=== PATIENT | female | born 1935 | race Caucasian/White ===

== ENCOUNTER 2024-04-30 18:41 | Inpatient (IN) | payer MEDICARE ==
[~2024-04-30] VITALS: Ht 160 cm; Wt 52.6 kg
[2024-04-30] MEDS: REMEDY ESSENTIAL ZINC PASTE 113 GM TOP SCH (20:33)
[2024-04-30 20:35] VITALS: BP 124/52; TEMP 97.4; O2SAT 96
[2024-04-30] MEDS ORDERED: ACET650T10 PO (20:52)
[2024-04-30] MEDS ORDERED: [UNRECOGNIZED DRUG - CODE] IV (20:52)
[2024-04-30] MEDS ORDERED: TIZA-180 PO (20:52)
[2024-04-30] MEDS ORDERED: ONDA-104 PO (20:52)
[2024-04-30] MEDS ORDERED: MORP1VIA3 IJ (20:52)
[2024-04-30] MEDS ORDERED: PREG25CA19 PO (20:52)
[2024-04-30] MEDS ORDERED: MAGN400O6 PO (20:52)
[2024-04-30] MEDS ORDERED: NITR-84 PO (20:52)
[2024-04-30] MEDS ORDERED: ENOX40DI9 SQ (20:52)
[2024-04-30] MEDS ORDERED: MAG355OR18 PO (20:52)
[2024-04-30] MEDS ORDERED: PANT40TA49 PO (20:52)
[2024-04-30] MEDS ORDERED: REMEDY ESSENTIAL ZINC PASTE 113 GM TOP SCH (21:00)
[2024-04-30] MEDS ORDERED: ONDANSETRON 4 MG/2 ML VIAL IV PRN (21:30)
[2024-04-30] MEDS ORDERED: ACETAMINOPHEN 325 MG TABLET PO PRN (21:30)
[2024-04-30] MEDS: PREGABALIN 25 MG CAPSULE PO SCH (22:41)
[2024-04-30] MEDS: TIZANIDINE HCL 4 MG TABLET PO SCH (22:41)
[2024-04-30] MEDS: ACETAMINOPHEN 325 MG TABLET PO SCH (22:42)
[2024-04-30] MEDS: NITROFURANTOIN/NITROFURAN MAC 100 MG CAPSULE PO SCH (22:42)
[2024-05-01] MEDS: ONDANSETRON HCL 4 MG TABLET PO SCH
[2024-05-01] MEDS: TRAMADOL HCL 50 MG TABLET PO PRN (00:01)
[2024-05-01 04:40] VITALS: BP 158/73; TEMP 97.6; O2SAT 95
[2024-05-01] MEDS ORDERED: REMEDY ESSENTIAL ZINC PASTE 113 GM TOP PRN (06:38)
[2024-05-01] MEDS ORDERED: ONDANSETRON HCL 4 MG TABLET PO PRN (08:00)
[2024-05-01 08:21] LABS: CALCIUM 8.3 mg/dL (8.5-10.1); CARBON DIOXIDE 26 mmol/L (21-32); CHLORIDE 108 mmol/L (98-107); CREATININE 0.6 mg/dL (0.6-1.3); GLUCOSE 119 mg/dL (74-106); POTASSIUM 4.7 mmol/L (3.5-5.1); SODIUM SERUM 141 mmol/L (136-145); UREA NITROGEN, BLOOD 11 mg/dL (7-18)
[2024-05-01] MEDS: PANTOPRAZOLE SODIUM 40 MG TABLET.DR PO SCH (09:04)
[2024-05-01] MEDS: ENOXAPARIN SODIUM 40 MG/0.4 ML DISP.SYRIN SQ SCH (09:46)
[2024-05-01] MEDS: ACETAMINOPHEN 325 MG TABLET PO PRN (10:33)
[2024-05-01] MEDS ORDERED: SULF1TAB48 PO (11:18)
[2024-05-01 13:00] VITALS: O2SAT 99
[2024-05-01] MEDS ORDERED: ZINC113P3 TP (14:54)
[2024-05-01 15:58] VITALS: BP 148/71; TEMP 97.8; O2SAT 100
[2024-05-01 20:31] VITALS: BP 104/48; TEMP 98.3; O2SAT 95
[2024-05-01] MEDS: SULFAMETH/TRIMETH 800/160 MG TABLET PO SCH (20:44)
[2024-05-01] MEDS: LIDOCAINE 5% PATCH TD SCH (20:49)
[2024-05-02 03:42] VITALS: O2SAT 99
[2024-05-02 05:10] VITALS: BP 129/61; TEMP 98.2; O2SAT 95
[2024-05-02] MEDS ORDERED: METHYL SALICYLATE/MENTHOL CREAM 28 GM TUBE TOP SCH (09:00)
[2024-05-02] MEDS: LIDOCAINE 5% PATCH TD SCH (09:12)
[2024-05-02] MEDS: METHYL SALICYLATE/MENTHOL CREAM 28 GM TUBE TOP SCH (09:13)
[2024-05-02 16:09] VITALS: BP 145/62; TEMP 98.6; O2SAT 95
[2024-05-02 21:32] VITALS: BP 106/58; TEMP 98; O2SAT 96
[2024-05-02 22:11] VITALS: O2SAT 98
[2024-05-03 06:51] VITALS: BP 134/52; TEMP 97.9; O2SAT 95
[2024-05-03] MEDS: ENSURE WITH FIBER 237 ML LIQUID (CHOCOLATE) PO SCH (12:06)
[2024-05-03 15:52] VITALS: BP 126/59; TEMP 97.5; O2SAT 96
[2024-05-03] MEDS: SORBITOL 70% SOLUTION 30 ML UDC PO ONE (16:30)
[2024-05-03] MEDS: LACTULOSE 20 G/30 ML LIQUID UDC PO ONE (16:30)
[2024-05-03] MEDS: DOCUSATE SODIUM 100 MG CAPSULE PO SCH (16:33)
[2024-05-03 16:35] VITALS: O2SAT 95
[2024-05-04 03:47] VITALS: O2SAT 97
[2024-05-04 06:00] VITALS: BP 139/63; TEMP 99; O2SAT 99
[2024-05-04] MEDS: HYDROCODONE/APAP 5-325MG TABLET PO PRN (11:24)
[2024-05-04 15:55] VITALS: BP 106/54; TEMP 97.9; O2SAT 99
[2024-05-04 16:26] VITALS: O2SAT 98
[2024-05-04 20:00] VITALS: BP 121/55; TEMP 98.2; O2SAT 93
[2024-05-05 00:09] VITALS: O2SAT 98
[2024-05-05 07:35] VITALS: BP 131/64; TEMP 97.6; O2SAT 96
[2024-05-05 15:20] VITALS: BP 105/50; TEMP 98.4; O2SAT 94
[2024-05-05 20:28] VITALS: BP 111/49; TEMP 98.1; O2SAT 96
[2024-05-05 20:52] VITALS: O2SAT 96
[2024-05-06 06:06] VITALS: BP 117/51; TEMP 98.1; O2SAT 96
[2024-05-06 15:57] VITALS: BP 111/52; TEMP 97.4; O2SAT 95
[2024-05-06 16:22] VITALS: O2SAT 96
[2024-05-06 20:14] VITALS: O2SAT 96
[2024-05-06 20:24] VITALS: BP 98/51; TEMP 98.6; O2SAT 95
[2024-05-07 06:49] VITALS: BP 108/50; TEMP 97.7; O2SAT 93
[2024-05-07 10:10] VITALS: O2SAT 97
[2024-05-07] MEDS: OXYCODONE/APAP 5-325 MG TABLET PO PRN (13:06)
[2024-05-07 15:13] VITALS: BP 118/56; TEMP 97.3; O2SAT 99
[2024-05-07 20:43] VITALS: BP 123/52; TEMP 97.9; O2SAT 96
[2024-05-07 20:58] VITALS: O2SAT 95
[2024-05-07 22:55] VITALS: O2SAT 96
[2024-05-08 06:05] VITALS: BP 129/62; TEMP 97.8; O2SAT 96
[2024-05-08 09:00] VITALS: BP 121/64; TEMP 97.7; O2SAT 96
[2024-05-08] MEDS: KETOROLAC TROMETHAMINE 10 MG TABLET PO ONE (14:30)
[2024-05-08] MEDS ORDERED: KETOROLAC TROMETHAMINE 10 MG TABLET PO ONE ×2 (15:00→15:30)
[2024-05-08 15:03] VITALS: BP 102/52; TEMP 98.5; O2SAT 95
[2024-05-08] MEDS ORDERED: KETOROLAC TROMETHAMINE 10 MG TABLET PO PRN (15:30)
[2024-05-08 19:56] VITALS: BP 107/54; TEMP 98.3; O2SAT 96
[2024-05-09 03:25] VITALS: O2SAT 97
[2024-05-09 05:20] VITALS: BP 110/54; TEMP 97.6; O2SAT 96
[2024-05-09 16:00] VITALS: BP 101/44; TEMP 98.3; O2SAT 96
[2024-05-09 20:00] VITALS: BP 96/50; TEMP 97.9; O2SAT 95
[2024-05-10 03:53] VITALS: O2SAT 96
[2024-05-10 05:57] VITALS: BP 102/58; TEMP 98.2; O2SAT 94
[2024-05-10] MEDS: ENSURE WITH FIBER 237 ML LIQUID (CHOCOLATE) PO SCH (12:24)
[2024-05-10 15:45] VITALS: BP 115/52; TEMP 98.7; O2SAT 95
[2024-05-10 16:07] VITALS: O2SAT 95
[2024-05-10 20:00] VITALS: BP 108/44; TEMP 98; O2SAT 96
[2024-05-10 20:25] VITALS: O2SAT 95
[2024-05-11 04:00] VITALS: BP 118/54; TEMP 98.7; O2SAT 97
[2024-05-11 14:33] VITALS: O2SAT 96
[2024-05-11 15:56] VITALS: BP 96/46; TEMP 97.6; O2SAT 94
[2024-05-11 20:00] VITALS: BP 110/47; TEMP 97.6; O2SAT 94
[2024-05-11 20:35] VITALS: O2SAT 95
[2024-05-12 07:08] VITALS: BP 109/47; TEMP 97.7; O2SAT 94
[2024-05-12 12:00] VITALS: O2SAT 94
[2024-05-12 16:36] VITALS: BP 106/53; TEMP 97.3; O2SAT 92
[2024-05-12 20:55] VITALS: BP 98/50; TEMP 97.6; O2SAT 97
[2024-05-13 06:29] VITALS: BP 118/55; TEMP 97.7; O2SAT 98
[2024-05-13 06:37] VITALS: O2SAT 98
[2024-05-13 15:24] VITALS: BP 117/56; TEMP 97.9; O2SAT 99
[2024-05-13 16:25] VITALS: O2SAT 97
[2024-05-13 20:08] VITALS: BP 104/53; TEMP 97.6; O2SAT 97
[2024-05-14 04:40] VITALS: BP 111/48; TEMP 97.9; O2SAT 97
[2024-05-14 13:34] VITALS: O2SAT 97
[2024-05-14 15:12] VITALS: BP 100/50; TEMP 98.6; O2SAT 97
[2024-05-14 20:00] VITALS: BP 120/55; TEMP 98; O2SAT 98
[2024-05-15 04:43] VITALS: O2SAT 98
[2024-05-15 06:00] VITALS: BP 122/5; TEMP 98.3; O2SAT 95
[2024-05-15 12:00] VITALS: O2SAT 97
[2024-05-15 15:56] VITALS: BP 115/53; TEMP 98.3; O2SAT 97
[2024-05-15 20:00] VITALS: BP 104/56; TEMP 97.6; O2SAT 93
[2024-05-16 05:27] VITALS: O2SAT 98
[2024-05-16 06:00] VITALS: BP 123/64; TEMP 97.9; O2SAT 96
[2024-05-16 15:51] VITALS: BP 116/52; TEMP 98.1; O2SAT 95
[2024-05-16 20:56] VITALS: BP 109/56; TEMP 97.7; O2SAT 97
[2024-05-17 06:08] VITALS: BP 119/58; TEMP 97.7; O2SAT 95
== END 2024-05-17 12:30 | disposition home health service (06) | DRG 560 ==
PROVIDERS: ADMIT Physical Medicine & Rehabilitation Pain Medicine; ATTEND Physical Medicine & Rehabilitation Pain Medicine
DX: S72.142D Displaced intertrochanteric fracture of left femur, subsequent encounter for closed fracture with routine healing (principal); E44.1 Mild protein-calorie malnutrition; L03.116 Cellulitis of left lower limb; N39.0 Urinary tract infection, site not specified; G89.29 Other chronic pain; M54.50 Low back pain, unspecified; M48.56XD Collapsed vertebra, not elsewhere classified, lumbar region, subsequent encounter for fracture with routine healing; S81.812D Laceration without foreign body, left lower leg, subsequent encounter; B95.61 Methicillin susceptible Staphylococcus aureus infection as the cause of diseases classified elsewhere; W01.0XXD Fall on same level from slipping, tripping and stumbling without subsequent striking against object, subsequent encounter; E88.09 Other disorders of plasma-protein metabolism, not elsewhere classified; M17.12 Unilateral primary osteoarthritis, left knee; Z88.0 Allergy status to penicillin; M51.16 Intervertebral disc disorders with radiculopathy, lumbar region
CPT/HCPCS: 36415; 73502; 97535-GO-CO; A4663; A6213; J1650; Q0162